=== PATIENT | male | born 1965 | race African-American/Black ===

== ENCOUNTER 2019-08-09 12:25 | Inpatient (IN) | payer OTHER ==
[2019-08-09 15:45] VITALS: BMI 24.3
--- NOTE | 2019-08-09 16:33 | HP ---
Addendum entered and electronically signed by Brenden Muller, RESIDENT 08/09/19 16: 45: Lost 10 lbs unintentionally in the last 2 months. No fever, night sweats, cough. Has not been eating well 2/2 drug. Original Note: <Brenden Muller - Last Filed: 08/09/19 16:26> CIWA Score Nausea/Vomitin-No Nausea/No Vomiting Muscle Tremors: None Anxiety: 0-No Anxiety, at Ease Agitation: 0-Normal Activity Paroxysmal Sweats: No Perspiration Orientation: 0-Oriented Tacttile Disturbances: 0-None Auditory Disturbances: 0-None Visual Disturbances: 0-None Headache: 0-None Present CIWA-Ar Total Score: 0 - Admission Criteria OASAS Guidelines: Admission for Medically Managed Detox: Requires at least one of the followin. CIWA greater than 12 2. Seizures within the past 24 hours 3. Delirium tremens within the past 24 hours 4. Hallucinations within the past 24 hours 5. Acute intervention needed for co occurring medical disorder 6. Acute intervention needed for co occurring psychiatric disorder 7. Severe withdrawal that cannot be handled at a lower level of care (continued vomiting, continued diarrhea, abnormal vital signs) requiring intravenous medication and/or fluids 8. Admitting History and Physical - Admission Chief Complaint: heroin History of Present Illness: Seeking detox for heroin. Does not want rehab. Has a program outside. Uses 1-2 bags/day since age 22. Last use yest. Never injected. Has had heroin withdrawal. EtOH: uses .5 pints whiskey every 2-3 days since age 15. Last drink Fri. Never had EtOH withdrawal. No signs/symptoms of withdrawal at this time. Cocaine: Last use yest. Uses rarely. No pills. Tobacco: 1/2 ppd since 15 years old. 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 3 kids age 19, 19, 30. 3 grandchildren. Sexually active, 1 partner, not using protection. 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: Migraine, Seizure Cardiovascular: No: HTN, Hyperlipdemia Pulmonary: No: Asthma, Cancer, COPD Gastrointestinal: No: Gastritis, GI Bleed Hepatobiliary: No: Cirrhosis Renal/: No: Renal Failure Heme/Onc: No: Anemia Infectious Disease: No: HIV Psych: No: Addictions, Anxiety Musculoskeletal: No: Bursitis, Chronic low back pain - Past Surgical History Past Surgical History: Yes: Amputation (R middle finger, distal) - Smoking History Smoking history: Current every day smoker Have you smoked in the past 12 months: Yes Aproximately how many cigarettes per day: 10 - Alcohol/Substance Use Hx Alcohol Use: No History of Substance Use: reports: Cocaine (infrequent use), Heroin, Marijuana ( remote use). denies: Prescription, Tranquilizers - Social History Usual Living Arrangement: Yes: Other (with aunt) ADL: Independent Admission [facility] Chief Complaint: detox for heroin Allergies/Adverse Reactions: Allergies Allergy/AdvReac Type Severity Reaction Status Date / Time No Known Allergies Allergy Unverified 06/25/16 14:56 - Ebola screening Have you traveled outside of the country in the last 21 days: No Have you had contact with anyone from an Ebola affected area: No Do you have a fever: No - Review of Systems Constitutional: No Symptoms Reported EENT: reports: No Symptoms Reported Respiratory: reports: No Symptoms reported Cardiac: reports: No Symptoms Reported GI: reports: No Symptoms Reported : reports: No Symptoms Reported Musculoskeletal: reports: No Symptoms Reported Integumentary: reports: No Symptoms Reported Neuro: reports: No Symptoms reported Endocrine: reports: No Symptoms Reported Hematology: reports: No Symptoms Reported Psychiatric: reports: No Sypmtoms Reported, Judgement Intact, Orientated x3 Patient History - Patient Medical History Hx Anemia: Yes (NO MEDS ) Hx Asthma: No Hx Chronic Obstructive Pulmonary Disease (COPD): No Hx Cancer: No Hx Cardiac Disorders: No Hx Congestive Heart Failure: No Hx Hypertension: No Hx Hypercholesterolemia: No Hx Pacemaker: No HX Cerebrovascular Accident: No Hx Seizures: No Hx Dementia: No Hx Diabetes: No Hx Gastrointestinal Disorders: No Hx Liver Disease: No Hx Genitourinary Disorders: No Hx Sexually Transmitted Disorders: No Hx Renal Disease (ESRD): No Hx Thyroid Disease: No Hx Human Immunodeficiency Virus (HIV): No Hx Hepatitis C: No Hx Depression: No Hx Suicide Attempt: No Hx Bipolar Disorder: No Hx Schizophrenia: No - Patient Surgical History Past Surgical History: Yes Hx Neurologic Surgery: No Hx Cataract Extraction: No Hx Cardiac Surgery: No Hx Lung Surgery: No Hx Breast Surgery: No Hx Breast Biopsy: No Hx Abdominal Surgery: No Hx Appendectomy: No Hx Cholecystectomy: No Hx Genitourinary Surgery: No Hx Section: No Hx Orthopedic Surgery: No Other Surgical History: RIGHT MIDDLE FINGER TIP AMPUTATED Anesthesia Reaction: No - PPD History Previous Implant?: Yes Documented Results: Negative w/proof Date: 05/01/16 Results: 0 mm. - Smoking Cessation Smoking history: Current every day smoker Have you smoked in the past 12 months: Yes Aproximately how many cigarettes per day: 10 Cigars Per Day: 0 Hx Chewing Tobacco Use: No Initiated information on smoking cessation: Yes 'Breaking Loose' booklet given: 08/09/19 - Substances abused Heroin Substance route: Inhalation Frequency: Daily Amount used: 2-3 bags a day Age of first use: 20 Date of last use: 08/08/19 Alcohol Substance route: Oral Frequency: 1-2 times per week Amount used: half a pint of any liquor Age of first use: 15 Date of last use: 08/06/19 Admission Physical Exam [facility] - Vital Signs Vital Signs: Vital Signs - 24 hr 08/09/19 08/09/19 15:38 15:55 Temperature 97.6 F 97.6 F Pulse Rate 75 75 Respiratory 16 16 Rate Blood Pressure 129/75 129/75 - Physical General Appearance: Yes: Within Normal Limits, No Apparent Distress, Nourished, Appropriately Dressed HEENTM: Yes: Within Normal Limits, EOMI, Normal ENT Inspection Respiratory: Yes: Within Normal Limits, Chest Non-Tender, Lungs Clear, Normal Breath Sounds, No Respiratory Distress, No Accessory Muscle Use Neck: Yes: Within Normal Limits, No masses,lesions,Nodules Cardiology: Yes: Within Normal Limits, Regular Rhythm, Regular Rate, Systolic Murmur, Gallop/S3, Gallop/S4 Abdominal: Yes: Within Normal Limits, Normal Bowel Sounds, Non Tender, Flat, Soft Genitourinary: Yes: Within Normal Limits Musculoskeletal: Yes: Within Normal Limits Extremities: Yes: Within Normal Limits, Normal Inspection, Normal Range of Motion, Other (2+ pulses) Screened but not Admitted - Documentation of Visit Screened but not Admitted: Yes Breathalyzer - Breathalyzer Breathalyzer: 0 Urine Drug Screen - Test Device Lot number: [id number] Expiration date: 02/10/21 - Control Is test valid?: Yes - Results Drug screen NEGATIVE: No Urine drug screen results: JUANA-Cocaine, FEN-Fentanyl, MOP-Opiates Inpatient Rehab Admission - Rehab Decision to Admit Inpatient rehab admission?: No <Josiane Sanchez - Last Filed: 08/09/19 17:19> COWS - Scale Resting Pulse: 0= [place] 80 or Below Sweatin= Chills/Flushing Restless Observation: 3= Extraneous Movement Pupil Size: 2= Moderately Dilated (Pupils = 4 mm) Bone or Joint Aches: 0= None Runny Nose/ Eye Tearin= Nasal Congestion GI Upset > 30mins: 1= Stomach Cramp Tremor Observation: 2= Slight Tremor Visible Yawning Observation: 0= None Anxiety or Irritability: 2=Irritable/Anxious Goose Flesh Skin: 0=Smooth Skin COWS Score: 12 CIWA Score - Admission Criteria OAS Guidelines: Admission for Medically Managed Detox: Requires at least one of the followin. CIWA greater than 12 2. Seizures within the past 24 hours 3. Delirium tremens within the past 24 hours 4. Hallucinations within the past 24 hours 5. Acute intervention needed for co occurring medical disorder 6. Acute intervention needed for co occurring psychiatric disorder 7. Severe withdrawal that cannot be handled at a lower level of care (continued vomiting, continued diarrhea, abnormal vital signs) requiring intravenous medication and/or fluids 8. Admission ROS [facility] - HPI History of Present Illness: Discussed w/ Dr. Muller. Patient's present COWS meets admission criteria for opioid detox. patient will be started on Methadone-moderate. Admission Physical Exam [facility] - Vital Signs Vital Signs: Vital Signs - 24 hr 08/09/19 08/09/19 15:38 15:55 Temperature 97.6 F 97.6 F Pulse Rate 75 75 Respiratory 16 16 Rate Blood Pressure 129/75 129/75 <Pipo Conroy - Last Filed: 08/11/19 08:07> COWS - Scale Resting Pulse: 0= [place] 80 or Below Sweatin= Chills/Flushing Restless Observation: 3= Extraneous Movement Pupil Size: 2= Moderately Dilated Bone or Joint Aches: 0= None Runny Nose/ Eye Tearin= Nasal Congestion GI Upset > 30mins: 1= Stomach Cramp Tremor Observation: 2= Slight Tremor Visible Yawning Observation: 0= None Anxiety or Irritability: 2=Irritable/Anxious Goose Flesh Skin: 0=Smooth Skin COWS Score: 12 CIWA Score - Admission Criteria OASAS Guidelines: Admission for Medically Managed Detox: Requires at least one of the followin. CIWA greater than 12 2. Seizures within the past 24 hours 3. Delirium tremens within the past 24 hours 4. Hallucinations within the past 24 hours 5. Acute intervention needed for co occurring medical disorder 6. Acute intervention needed for co occurring psychiatric disorder 7. Severe withdrawal that cannot be handled at a lower level of care (continued vomiting, continued diarrhea, abnormal vital signs) requiring intravenous medication and/or fluids 8. Admission ROS [facility] - Ebola screening Have you traveled outside of the country in the last 21 days: No Have you had contact with anyone from an Ebola affected area: No Have you been sick,other than usual withdrawal symptoms: No Do you have a fever: No - Review of Systems Constitutional: Chills, Unintentional Wgt. Loss EENT: reports: No Symptoms Reported Respiratory: reports: No Symptoms reported Cardiac: reports: No Symptoms Reported GI: reports: Nausea, Abdominal cramping : reports: No Symptoms Reported Musculoskeletal: reports: Muscle Pain Integumentary: reports: No Symptoms Reported Neuro: reports: No Symptoms reported Endocrine: reports: No Symptoms Reported Hematology: reports: No Symptoms Reported Psychiatric: reports: Judgement Intact, Orientated x3, Anxious Other Systems: Reviewed and Negative Patient History - Smoking Cessation Initiated information on smoking cessation: Yes 'Breaking Loose' booklet given: 08/10/19 Admission Physical Exam [facility] - Vital Signs Vital Signs: Vital Signs - 24 hr 08/10/19 08/10/19 08/10/19 09:22 13:41 18:14 Temperature 97.9 F 97.9 F 99.1 F Pulse Rate 51 L 53 L 54 L Respiratory 18 16 17 Rate Blood Pressure 140/77 129/73 128/63 08/10/19 08/11/19 08/11/19 21:16 00:30 03:30 Temperature 98.1 F Pulse Rate 60 Respiratory 18 18 18 Rate Blood Pressure 134/72 08/11/19 08/11/19 07:27 07:28 Temperature 97.9 F Pulse Rate 41 L 41 L Respiratory 18 18 Rate Blood Pressure 166/74 128/67 Screened but not Admitted - Documentation of Visit Screened but not Admitted: No Inpatient Rehab Admission - Rehab Decision to Admit Inpatient rehab admission?: No
[2019-08-09] MEDS ORDERED: MENTHOL/PHENOL 1 EACH UD MM PRN (16:42)
[2019-08-09] MEDS ORDERED: MAGNESIUM HYDROX 2400MG/30ML ORAL SUSPENSION 30 ML CUP PO PRN (16:42)
[2019-08-09] MEDS ORDERED: MAG HYDROX/AL HYDROX/SIMETH 30 ML UNIT-DOSE CUP PO PRN (16:42)
[2019-08-09] MEDS ORDERED: cloNIDine HCL 0.1 MG TABLET PO PRN (16:42)
[2019-08-09] MEDS ORDERED: ACETAMINOPHEN 325 MG TABLET (FP) PO PRN ×2 (16:42)
[2019-08-09] MEDS ORDERED: IBUPROFEN 400 MG TABLET (FP) PO PRN (16:42)
[2019-08-09] MEDS ORDERED: BISMUTH SUBSALICYLATE 524 MG/30 ML UD PO PRN (16:42)
[2019-08-09] MEDS ORDERED: MAGNESIUM CITRATE 300 ML BOTTLE PO PRN (16:42)
[2019-08-09] MEDS ORDERED: METHOCARBAMOL 500 MG TABLET PO PRN (17:08)
[2019-08-09] MEDS ORDERED: METHADONE HCL 10 MG TABLET (FOR DETOX USE ONLY) PO ONE (17:30)
--- NOTE | 2019-08-09 17:42 | PN ---
S Progress Note Note: Patient with EKG indicating Bradycardia w/ minimal voltage criteria for LVH. Denies vertigo, SOB. No edema. Prior EKG 2015 w/ bradycardia @ 53. Will repeat EKG in a.m.
[2019-08-09] MEDS ORDERED: NICOTINE POLACRILEX 2 MG GUM BUC PRN (17:45)
[2019-08-09] MEDS: MELATONIN 5 MG TABLETS PO PRN (22:10)
[2019-08-09] MEDS: THIAMINE HCL 100 MG TABLET (FP) PO SCH (22:10)
[2019-08-10] MEDS ORDERED: METHADONE HCL 5 MG TABLET (FOR DETOX USE ONLY) PO ONE (10:00)
[2019-08-10] MEDS: PRENATAL VITAMINS W/ FOLIC ACID TABLET (FP) PO SCH (10:11)
--- NOTE | 2019-08-10 10:38 | PN ---
[facility] COWS - Scale Resting Pulse: 0= [place] 80 or Below Sweatin= Chills/Flushing Restless Observation: 1= Difficult to Sit Still Pupil Size: 0= Normal to Room Light Bone or Joint Aches: 2= Severe Diffuse Aches Runny Nose/ Eye Tearin= Runny Nose/Eyes GI Upset > 30mins: 0= None Tremor Observation of Outstretched Hands: 1= Tremor [place], Not Seen Yawning Observation: 2= >3x During Session Anxiety or Irritability: 2=Irritable/Anxious Goose Flesh Skin: 0=Smooth Skin COWS Score: 11 S Progress Note (SOAP) Subjective: sweats shakes body aches interrupted sleep irritable Objective: 08/10/19 10:37 Vital Signs Temperature 97.9 F 08/10/19 09:22 Pulse Rate 51 L 08/10/19 09:22 Respiratory Rate 18 08/10/19 09:22 Blood Pressure 140/77 08/10/19 09:22 O2 Sat by Pulse Oximetry (%) labs pending aaox3 ambulating no acute distress Assessment: 08/10/19 10:37 withdrawals Plan: continue detox increase fluids ekg repeat ordered
[2019-08-10 10:56] LABS: ALBUMIN 2.9 g/dl (3.4-5.0); BILIRUBIN,TOTAL 0.4 mg/dL (0.2-1); BLOOD UREA NITROGEN 15.7 mg/dL (7-18); CALCIUM 8.3 mg/dL (8.5-10.1); HEMOGLOBIN 12.8 GM/dL (11.7-16.9); MCH 30.1 pg (25.7-33.7); MCHC 33.7 g/dl (32.0-35.9); MEAN CELL VOLUME 89.3 fl (80-96); MEAN PLT VOLUME 8.8 fl (7.5-11.1); PLATELET COUNT 236 K/MM3 (134-434); POTASSIUM 4.3 mmol/L (3.5-5.1); RBC 4.25 M/mm3 (4.00-5.60); RDW 13.2 % (11.9-15.9); TOT PROT 5.6 g/dl (6.4-8.2); WHITE BLOOD COUNT 3.9 K/mm3 (4.0-10.0)
--- NOTE | 2019-08-10 14:32 | EKG ---
Test Reason : Blood Pressure : / mmHG Vent. Rate : 048 BPM Atrial Rate : 048 BPM P-R Int : 166 ms QRS Dur : 096 ms QT Int : 470 ms P-R-T Axes : 050 062 040 degrees QTc Int : 419 ms SINUS BRADYCARDIA OTHERWISE NORMAL ECG WHEN COMPARED WITH ECG OF 09-AUG-2019 17:29, NO SIGNIFICANT CHANGE WAS FOUND Confirmed by MD Cardoso Edward ([id number]) on 08/10/2019 2:32:30 PM Referred By: Confirmed By:Twan Cardoso MD
[2019-08-10] MEDS: NICOTINE 14 MG/24 HOURS TOPICAL PATCH TD SCH (14:46)
--- NOTE | 2019-08-10 15:13 | EKG ---
Test Reason : Blood Pressure : / mmHG Vent. Rate : 043 BPM Atrial Rate : 043 BPM P-R Int : 170 ms QRS Dur : 094 ms QT Int : 490 ms P-R-T Axes : 059 069 043 degrees QTc Int : 414 ms MARKED SINUS BRADYCARDIA MINIMAL VOLTAGE CRITERIA FOR LVH, MAY BE NORMAL VARIANT ABNORMAL ECG NO PREVIOUS ECGS AVAILABLE Confirmed by MD Walker, Twan ([id number]) on 08/10/2019 3:12:25 PM Referred By: Confirmed By:Twan Cardoso MD
[2019-08-10] MEDS: MELATONIN 5 MG TABLETS PO PRN (21:40)
[2019-08-10] MEDS: THIAMINE HCL 100 MG TABLET (FP) PO SCH (21:40)
[2019-08-11] MEDS: PRENATAL VITAMINS W/ FOLIC ACID TABLET (FP) PO SCH (09:43)
[2019-08-11] MEDS: NICOTINE 14 MG/24 HOURS TOPICAL PATCH TD SCH (09:43)
[2019-08-11] MEDS ORDERED: METHADONE HCL 10 MG TABLET (FOR DETOX USE ONLY) PO ONE (10:00)
--- NOTE | 2019-08-11 12:16 | PN ---
[facility] COWS - Scale Resting Pulse: 0= [place] 80 or Below Sweatin= Chills/Flushing Restless Observation: 1= Difficult to Sit Still Pupil Size: 0= Normal to Room Light Bone or Joint Aches: 2= Severe Diffuse Aches Runny Nose/ Eye Tearin= Nasal Congestion GI Upset > 30mins: 0= None Tremor Observation of Outstretched Hands: 2= Slight Tremor Visible Yawning Observation: 0= None Anxiety or Irritability: 1=Feels Anxious/Irritable Goose Flesh Skin: 0=Smooth Skin COWS Score: 8 [facility] Progress Note (SOAP) Subjective: sweats shakes agitation Objective: 08/11/19 12:15 Vital Signs Temperature 97.7 F 08/11/19 09:24 Pulse Rate 47 L 08/11/19 09:24 Respiratory Rate 16 08/11/19 09:24 Blood Pressure 148/89 08/11/19 09:24 O2 Sat by Pulse Oximetry (%) Laboratory Tests 08/10/19 08/10/19 08/10/19 07:45 07:45 07:45 WBC 3.9 L RBC 4.25 Hgb 12.8 Hct 38.0 MCV 89.3 MCH 30.1 MCHC 33.7 RDW 13.2 Plt Count 236 MPV 8.8 Sodium 142 Potassium 4.3 Chloride 108 H Carbon Dioxide 30 Anion Gap 4 L BUN 15.7 Creatinine 1.0 Est GFR (CKD-EPI)AfAm 99.15 Est GFR (CKD-EPI)NonAf 85.55 Random Glucose 96 Calcium 8.3 L Total Bilirubin 0.4 AST 16 ALT 28 Alkaline Phosphatase 70 Total Protein 5.6 L Albumin 2.9 L RPR Titer Nonreactive aaox3 ambulating no acute distress Assessment: 08/11/19 12:15 withdrawals Plan: d/c in am at 7am
[2019-08-11 21:52] VITALS: PULSE 46
[2019-08-11] MEDS: THIAMINE HCL 100 MG TABLET (FP) PO SCH (22:00)
[2019-08-12] MEDS ORDERED: METHADONE HCL 5 MG TABLET (FOR DETOX USE ONLY) PO ONE (06:00)
--- NOTE | 2019-08-12 08:34 | DS ---
[facility] Detox Discharge Summary Admission Date: 08/09/19 Discharge Date: 08/12/19 - History Present History: Opioid Dependence - Physical Exam Results Vital Signs: Vital Signs Temperature 97.9 F 08/11/19 21:51 Pulse Rate 46 L 08/11/19 21:51 Respiratory Rate 18 08/12/19 03:30 Blood Pressure 123/63 08/11/19 21:51 O2 Sat by Pulse Oximetry (%) Pertinent Admission Physical Exam Findings: Vital Signs Temperature 97.9 F 08/11/19 21:51 Pulse Rate 46 L 08/11/19 21:51 Respiratory Rate 18 08/12/19 03:30 Blood Pressure 123/63 08/11/19 21:51 O2 Sat by Pulse Oximetry (%) Laboratory Tests 08/10/19 08/10/19 08/10/19 07:45 07:45 07:45 WBC 3.9 L RBC 4.25 Hgb 12.8 Hct 38.0 MCV 89.3 MCH 30.1 MCHC 33.7 RDW 13.2 Plt Count 236 MPV 8.8 Sodium 142 Potassium 4.3 Chloride 108 H Carbon Dioxide 30 Anion Gap 4 L BUN 15.7 Creatinine 1.0 Est GFR (CKD-EPI)AfAm 99.15 Est GFR (CKD-EPI)NonAf 85.55 Random Glucose 96 Calcium 8.3 L Total Bilirubin 0.4 AST 16 ALT 28 Alkaline Phosphatase 70 Total Protein 5.6 L Albumin 2.9 L RPR Titer Nonreactive aaox3 ambulating no acute distress - Treatment Hospital Course: Detox Protocol Followed, Detoxed Safely, Responded well, Discharged Condition Good, Rehab Referral Accepted - Diagnosis (1) Anemia Current Visit: No Status: Chronic (2) Nicotine dependence Current Visit: Yes Status: Chronic Qualifiers: Nicotine product type: cigarettes Substance use status: uncomplicated Qualified Code(s): F17.210 - Nicotine dependence, cigarettes, uncomplicated (3) Opioid dependence with withdrawal Current Visit: Yes Status: Chronic - AMA Did Patient Leave Against Medical Advice: No
[2019-08-12 08:44] VITALS: BP 138/63; TEMP 98.1
== END 2019-08-12 08:37 | disposition home or self-care (01) | DRG 773 ==
LOC: YASAS 12:25 → Y6N 16:51
PROVIDERS: ADMIT Allergy & Immunology; ATTEND Allergy & Immunology
PROC: HZ2ZZZZ Detoxification Services for Substance Abuse Treatment (ICD-10-PCS; principal; 2019-08-09)
DX: F11.23 Opioid dependence with withdrawal (principal); F17.210 Nicotine dependence, cigarettes, uncomplicated; R00.1 Bradycardia, unspecified; R01.1 Cardiac murmur, unspecified; Z89.021 Acquired absence of right finger(s)
CPT/HCPCS: 36415; 80053; 85027; 86593; 93005; 93010

== ENCOUNTER 2021-04-03 11:55 | Emergency (ER) | payer OTHER ==
[2021-04-03 12:26] VITALS: TEMP 98.2; BMI 25.1
[2021-04-03] MEDS ORDERED: KETOROLAC TROMETHAMINE 30 MG/1 ML VIAL IVPUSH ONE (13:23)
[2021-04-03] MEDS ORDERED: SODIUM CHLORIDE 0.9% 500 ML INFUS.BAG IV ONE (13:23)
[2021-04-03] MEDS ORDERED: KETOROLAC TROMETHAMINE 30 MG/1 ML VIAL ONE (13:25)
[2021-04-03 13:52] LABS: EPI CELLS 3 /uL (0-25.1); HYALINE CASTS 0 /uL (0-3.1); URINE APPEARANCE TURBID; URINE BACTERIA >9,000 /uL (0-1359); URINE BILIRUBIN NEGATIVE (NEGATIVE); URINE COLOR YELLOW; URINE GLUCOSE (UA) NEGATIVE (NEGATIVE); URINE KETONE TRACE (NEGATIVE); URINE LEUK ESTERASE 3+ (NEGATIVE); URINE NITRITE POSITIVE (NEGATIVE); URINE PROTEIN 1+ (NEGATIVE); URINE RBC 2185 /uL (0-23.9); URINE WBC 3325 /uL (0-25.8)
[2021-04-03 14:15] LABS: BASO % 0.3 % (0-2.0); HEMATOCRIT 40.1 % (35.4-49); HEMOGLOBIN 13.6 GM/dL (11.7-16.9); LYMPH % 5.6 % (8-40); MCH 29.3 pg (25.7-33.7); MCHC 33.8 g/dl (32.0-35.9); MEAN CELL VOLUME 86.7 fl (80-96); MEAN PLT VOLUME 8.5 fl (7.5-11.1); MONO % 7.4 % (3.8-10.2); NEUT % 86.7 % (42.8-82.8); PLATELET COUNT 272 10^3/uL (134-434); RBC 4.62 M/mm3 (4.00-5.60); RDW 13.8 % (11.9-15.9); WHITE BLOOD COUNT 16.7 K/mm3 (4.0-10.0)
[2021-04-03 14:36] LABS: BLOOD UREA NITROGEN 9.2 mg/dL (7-18); CALCIUM 9.3 mg/dL (8.5-10.1)
[2021-04-03 14:37] LABS: ALBUMIN 3.4 g/dl (3.4-5.0)
[2021-04-03 14:41] LABS: BILIRUBIN,TOTAL 0.8 mg/dL (0.2-1); TOT PROT 7.6 g/dl (6.4-8.2)
[2021-04-03] MEDS ORDERED: CEFTRIAXONE 1 GM in DEXTROSE 5%-WATER - 100 ML IVPB ONE (15:36)
[2021-04-03] MEDS ORDERED: CEFTRIAXONE 1 GM/50 ML BAG ONE (16:31)
[2021-04-03 16:52] VITALS: BP 155/89; PULSE 62
== END 2021-04-03 18:45 | disposition home or self-care (01) ==
LOC: JER 11:55
PROC: 3E03329 Introduction of Other Anti-infective into Peripheral Vein, Percutaneous Approach (ICD-10-PCS; principal; 2021-04-03)
PROC: 3E0333Z Introduction of Anti-inflammatory into Peripheral Vein, Percutaneous Approach (ICD-10-PCS; 2021-04-03)
DX: N30.90 Cystitis, unspecified without hematuria (principal); N43.40 Spermatocele of epididymis, unspecified
CPT/HCPCS: 36415; 74177-TC; 76870-TC; 80053; 81003; 85025; 87086; 87186; 96365; 96375; 99285-25; Q9967

== ENCOUNTER 2021-08-16 22:42 | Inpatient (IN) | payer OTHER ==
[2021-08-17 00:02] VITALS: BMI 27.5
[2021-08-17] MEDS ORDERED: NICOTINE POLACRILEX 2 MG GUM BUC PRN (01:56)
[2021-08-17] MEDS ORDERED: MAGNESIUM CITRATE 300 ML BOTTLE PO PRN (01:56)
[2021-08-17] MEDS ORDERED: ONDANSETRON *ODT* 4 MG TABLET SL PRN (01:56)
[2021-08-17] MEDS ORDERED: MAG HYDROX/AL HYDROX/SIMETH 30 ML UNIT-DOSE CUP PO PRN (01:56)
[2021-08-17] MEDS ORDERED: ACETAMINOPHEN 325 MG TABLET (FP) PO PRN ×2 (01:56)
[2021-08-17] MEDS ORDERED: methaDONE HCL 10 MG TABLET (FOR DETOX USE ONLY) PO ONE (01:56)
[2021-08-17] MEDS ORDERED: MENTHOL/PHENOL 1 EACH UD MM PRN (01:56)
[2021-08-17] MEDS ORDERED: hydrOXYzine PAMOATE 25 MG CAPSULE (FP) PO PRN (01:56)
[2021-08-17] MEDS ORDERED: IBUPROFEN 400 MG TABLET (FP) PO PRN (01:56)
[2021-08-17] MEDS ORDERED: BISMUTH SUBSALICYLATE 524 MG/30 ML PO PRN (01:56)
[2021-08-17] MEDS ORDERED: MAGNESIUM HYDROX 2400MG/30ML ORAL SUSPENSION 30 ML CUP PO PRN (01:56)
[2021-08-17] MEDS ORDERED: methaDONE HCL 10 MG TABLET (FOR DETOX USE ONLY) ONE (03:28)
[2021-08-17] MEDS ORDERED: NICOTINE 14 MG/24 HOURS TOPICAL PATCH TD SCH (10:00)
[2021-08-17] MEDS: PRENATAL VITAMINS W/ FOLIC ACID TABLET (FP) PO SCH (10:24)
[2021-08-17 10:36] LABS: HEMATOCRIT 35.4 % (35.4-49); HEMOGLOBIN 11.9 GM/dL (11.7-16.9); MCH 29.1 pg (25.7-33.7); MCHC 33.8 g/dl (32.0-35.9); MEAN CELL VOLUME 86.3 fl (80-96); MEAN PLT VOLUME 7.8 fl (7.5-11.1); PLATELET COUNT 227 10^3/uL (134-434); RDW 13.8 % (11.9-15.9); WHITE BLOOD COUNT 4.7 K/mm3 (4.0-10.0)
[2021-08-17 10:43] LABS: CALCIUM 8.9 mg/dL (8.5-10.1)
[2021-08-17 10:44] LABS: ALBUMIN 3.3 g/dl (3.4-5.0); BLOOD UREA NITROGEN 13.2 mg/dL (7-18)
[2021-08-17 10:49] LABS: BILIRUBIN,TOTAL 0.2 mg/dL (0.2-1); TOT PROT 6.2 g/dl (6.4-8.2)
[2021-08-17] MEDS: NICOTINE 10 MG CARTRIDGE (INHALER) IH PRN ×2 (21:36→22:50)
[2021-08-17] MEDS: METHOCARBAMOL 500 MG TABLET PO PRN (22:48)
[2021-08-17] MEDS: MELATONIN 5 MG TABLETS PO SCH (22:48)
[2021-08-17] MEDS: THIAMINE HCL 100 MG TABLET (FP) PO SCH (22:48)
[2021-08-17] MEDS: cloNIDine HCL 0.1 MG TABLET PO PRN (22:49)
[2021-08-18] MEDS ORDERED: methaDONE HCL 10 MG TABLET (FOR DETOX USE ONLY) ONE (08:58)
[2021-08-18] MEDS: METHOCARBAMOL 500 MG TABLET PO PRN ×2 (10:47→22:36)
[2021-08-18] MEDS: PRENATAL VITAMINS W/ FOLIC ACID TABLET (FP) PO SCH (10:47)
[2021-08-18] MEDS: cloNIDine HCL 0.1 MG TABLET PO PRN ×2 (10:47→18:23)
[2021-08-18] MEDS: NICOTINE 10 MG CARTRIDGE (INHALER) IH PRN ×2 (18:23→22:40)
[2021-08-18] MEDS: THIAMINE HCL 100 MG TABLET (FP) PO SCH (22:36)
[2021-08-18] MEDS: MELATONIN 5 MG TABLETS PO SCH (22:36)
[2021-08-19] MEDS: cloNIDine HCL 0.1 MG TABLET PO PRN ×4 (01:00→22:08)
[2021-08-19] MEDS ORDERED: methaDONE HCL 10 MG TABLET (FOR DETOX USE ONLY) PO ONE (10:00)
[2021-08-19] MEDS: PRENATAL VITAMINS W/ FOLIC ACID TABLET (FP) PO SCH (10:20)
[2021-08-19] MEDS: NICOTINE 10 MG CARTRIDGE (INHALER) IH PRN ×2 (15:05→22:09)
[2021-08-19] MEDS: MELATONIN 5 MG TABLETS PO SCH (22:08)
[2021-08-19] MEDS: THIAMINE HCL 100 MG TABLET (FP) PO SCH (22:08)
[2021-08-19] MEDS: METHOCARBAMOL 500 MG TABLET PO PRN (22:08)
[2021-08-20 09:13] VITALS: BP 153/86; PULSE 62; TEMP 97
[2021-08-20] MEDS ORDERED: methaDONE HCL 10 MG TABLET (FOR DETOX USE ONLY) ONE (09:51)
[2021-08-20] MEDS: METHOCARBAMOL 500 MG TABLET PO PRN (10:14)
[2021-08-20] MEDS: PRENATAL VITAMINS W/ FOLIC ACID TABLET (FP) PO SCH (10:14)
[2021-08-21] MEDS ORDERED: methaDONE HCL 10 MG TABLET (FOR DETOX USE ONLY) PO ONE (10:00)
== END 2021-08-20 11:50 | disposition left against medical advice (07) | DRG 770 ==
LOC: YASAS 22:42 → Y3N 08-17 05:21
PROVIDERS: ADMIT Allergy & Immunology; ATTEND Allergy & Immunology
PROC: HZ2ZZZZ Detoxification Services for Substance Abuse Treatment (ICD-10-PCS; principal; 2021-08-17)
DX: F11.23 Opioid dependence with withdrawal (principal); F14.20 Cocaine dependence, uncomplicated; F17.210 Nicotine dependence, cigarettes, uncomplicated; D64.9 Anemia, unspecified; Z89.021 Acquired absence of right finger(s)
CPT/HCPCS: 36415; 80053; 85027; 86780; 93005; 93010; C9803; J0735; U0003; U0005